=== PATIENT | female | born 1955 | race Caucasian/White ===

== ENCOUNTER 2018-06-02 03:08 | Emergency (ER) | payer BC ==
[2018-06-02] MEDS ORDERED: ONDANSETRON 4 MG/2 ML VIAL ONE (04:42)
[2018-06-02] MEDS ORDERED: LORazepam 2 MG/ML VIAL ONE (04:42)
[2018-06-02] MEDS ORDERED: NA CHLORIDE 0.9% 1,000 ML ONE (04:42)
[2018-06-02] MEDS ORDERED: FAMOTIDINE 20 MG/2 ML VIAL IV ONE (04:42)
[2018-06-02 05:14] LABS: Absolute Lymphocytes (CBC) 1.3 K/uL (0.7-4.9); Absolute Monocytes 0.7 K/uL (0.1-1.3); Absolute Neutrophil 7.3 K/uL (1.8-8.0); Basophils % 0.4 % (0-1.3); MPV 8.4 fL (7.6-11.3)
[2018-06-02 05:27] LABS: Albumin 4.5 g/dL (3.4-5.0); Bilirubin Direct 0.2 mg/dL (0-0.2); Potassium 3.1 mmol/L (3.5-5.1); Protein, Total 8.2 g/dL (6.4-8.2)
[2018-06-02] MEDS ORDERED: POTASSIUM 25 MEQ EFFERV TAB ONE (06:02)
[2018-06-02 06:13] LABS: Urine Bacteria <20 /HPF (<20); Urine RBC <5 /HPF (NONE SEEN)
[2018-06-02 06:14] LABS: Urine Amorphous Sediment 1+ /HPF (NONE SEEN); Urine Culture Reflex Order NOT NEEDED
[2018-06-02 06:15] LABS: Urine Blood 1+ (NEG); Urine Glucose NEGATIVE (NEG); Urine Protein NEGATIVE (NEG); Urine Specific Gravity 1.015 (1.005-1.030)
--- NOTE | 2018-06-02 06:32 | EDPHYS ---
Physician Documentation [facility] Name: Lovely Rai Age: 62 yrs Sex: Female : 1955 Arrival Date: 06/02/2018 Time: 03:13 Bed 15 Private MD: ED Physician Rigoberto Fuentes HPI: 06/02 04:08 This 62 yrs old Female presents to ER via Ambulatory with complaints of wa Nausea/Vomiting, High Blood Pressure. 04:08 The patient presents to the emergency department with vomiting. Onset: The wa symptoms/episode began/occurred 3 day(s) ago. Possible causes: unknown, states run out of her xanax x 3 days. has been on 0.5mg 4 times a day x 5 yrs. denies abd pain or diarrhea. The symptoms are aggravated by nothing. The symptoms are alleviated by nothing. Associated signs and symptoms: Pertinent positives: lightheartedness that began today. . Severity of symptoms: At their worst the symptoms were moderate in the emergency department the symptoms are unchanged. The patient has not experienced similar symptoms in the past. The patient has not recently seen a physician. Historical: - Allergies: 03:30 No Known Allergies; cc3 - Home Meds: 03:30 metoprolol tartrate 50 mg Oral tab 1 tab once daily [Active]; cc3 losartan-hydrochlorothiazide 100-12.5 mg oral tab 1 tab once daily [Active]; sertraline 100 mg oral tab 1 tab once daily [Active]; alprazolam 0.5 mg Oral tab 1 tab 3 times per day [Active]; - PMHx: 03:30 Hypertension; Depression; Anxiety; cc3 - PSHx: 03:30 miniscus bilateral knee surgery; Hysterectomy; Tonsillectomy; cc3 - Immunization history:: Adult Immunizations not up to date. - Social history:: Smoking status: Patient/guardian denies using tobacco, never smoked. - Ebola Screening: : No symptoms or risks identified at this time. - Family history:: not pertinent. - Hospitalizations: : No recent hospitalization is reported. ROS: 04:10 Constitutional: Negative for fever, chills, and weight loss, Eyes: Negative for injury, wa pain, redness, and discharge, ENT: Negative for injury, pain, and discharge, Neck: Negative for injury, pain, and swelling, Cardiovascular: Negative for chest pain, palpitations, and edema, Respiratory: Negative for shortness of breath, cough, wheezing, and pleuritic chest pain, Back: Negative for injury and pain, : Negative for injury, bleeding, discharge, and swelling, MS/Extremity: Negative for injury and deformity, Skin: Negative for injury, rash, and discoloration, Psych: Negative for depression, anxiety, suicide ideation, homicidal ideation, and hallucinations. 04:10 Abdomen/GI: Positive for nausea and vomiting. 04:10 Neuro: Positive for dizziness. 04:10 All other systems are negative. Exam: 04:11 Constitutional: This is a well developed, well nourished patient who is awake, alert, wa and in no acute distress. Head/Face: Normocephalic, atraumatic. Eyes: Pupils equal round and reactive to light, extra-ocular motions intact. Lids and lashes normal. Conjunctiva and sclera are non-icteric and not injected. Cornea within normal limits. Periorbital areas with no swelling, redness, or edema. ENT: Nares patent. No nasal discharge, no septal abnormalities noted. Tympanic membranes are normal and external auditory canals are clear. Oropharynx with no redness, swelling, or masses, exudates, or evidence of obstruction, uvula midline. Mucous membranes moist. Neck: Trachea midline, no thyromegaly or masses palpated, and no cervical lymphadenopathy. Supple, full range of motion without nuchal rigidity, or vertebral point tenderness. No Meningismus. Chest/axilla: Normal chest wall appearance and motion. Nontender with no deformity. No lesions are appreciated. Cardiovascular: Regular rate and rhythm with a normal S1 and S2. No gallops, murmurs, or rubs. Normal PMI, no JVD. No pulse deficits. Respiratory: Lungs have equal breath sounds bilaterally, clear to auscultation and percussion. No rales, rhonchi or wheezes noted. No increased work of breathing, no retractions or nasal flaring. Back: No spinal tenderness. No costovertebral tenderness. Full range of motion. Skin: Warm, dry with normal turgor. Normal color with no rashes, no lesions, and no evidence of cellulitis. MS/ Extremity: Pulses equal, no cyanosis. Neurovascular intact. Full, normal range of motion. Psych: Awake, alert, with orientation to person, place and time. Behavior, mood, and affect are within normal limits. 04:11 Abdomen/GI: Inspection: abdomen appears normal, Bowel sounds: normal, Palpation: abdomen is soft and non-tender, in all quadrants. 04:11 Neuro: Orientation: is normal, Mentation: is normal, Cranial nerves: grossly normal, Cerebellar function: is grossly normal, Motor: is normal. Vital Signs: 03:30 BP 172 / 84; Pulse 69; Resp 18 S; Temp 98.3(O); Pulse Ox 98% on R/A; Weight 79.83 kg cc3 (R); Height 5 ft. 6 in. (167.64 cm) (R); 04:30 BP 167 / 75; Pulse 70; Resp 19 S; Pulse Ox 98% on R/A; cc3 05:44 BP 148 / 67; Pulse 63; Resp 19 S; Pulse Ox 97% on R/A; cc3 06:17 BP 139 / 68; Pulse 63; Resp 16 S; Pulse Ox 100% on R/A; cc3 03:30 Body Mass Index 28.41 (79.83 kg, 167.64 cm) cc3 MDM: 03:21 Patient medically screened. hi 04:12 Differential diagnosis: gastritis, viral syndrome? r/o UTI. may be related to benzo wa withdrawal. 06:28 Data reviewed: vital signs, nurses notes. Test interpretation: by ED physician or hi midlevel provider: hyponatremia. hypokalemia.. 06:29 Response to treatment: the patient's symptoms have markedly improved after treatment, april states feels much better. states she's always had low Na and K in the past. . 06:42 ED course: repeat chem after fluids Na 127. K 3.3. hi 06:44 Special discussion: states has h/o low NA and K. has always been low whenever she gets hi checked. will replenish and give close f/u. 06/02 04:05 Order name: Basic Metabolic Panel 06/02 04:05 Order name: CBC with Diff 06/02 04:05 Order name: Hepatic Function 06/02 04:05 Order name: Lipase 06/02 04:05 Order name: Flu; Complete Time: 05:37 06/02 04:05 Order name: Urine Microscopic Only; Complete Time: 06:25 06/02 04:05 Order name: Basic Metabolic Panel; Complete Time: 05:37 EDMS 06/02 04:05 Order name: CBC with Automated Diff; Complete Time: 05:38 EDMS 06/02 04:05 Order name: Liver (Hepatic) Function; Complete Time: 05:38 EDMS 06/02 04:05 Order name: Lipase; Complete Time: 05:37 EDMS 06/02 05:39 Order name: Urine Dipstick--Ancillary (enter results); Complete Time: 06:25 [facility] 06/02 05:39 Order name: BMP; Complete Time: 06:41 hi 06/02 04:05 Order name: IV Saline Lock; Complete Time: 05:09 hi 06/02 04:05 Order name: Labs collected and sent; Complete Time: 05:09 hi 06/02 04:05 Order name: Urine Dipstick-Ancillary (obtain specimen); Complete Time: 05:57 hi 06/02 04:07 Order name: Cardiac monitoring; Complete Time: 05:07 hi Administered Medications: 04:40 Drug: NS 0.9% 1000 ml Route: IV; Rate: 1 bolus; Site: right antecubital; cc3 06:00 Follow up: Response: No adverse reaction; IV Status: Completed infusion; IV Intake: cc3 1000ml 04:45 Drug: Zofran 4 mg Route: IVP; Site: right antecubital; cc3 05:43 Follow up: Response: No adverse reaction; Nausea is decreased; Vomiting decreased cc3 04:48 Drug: Pepcid 20 mg Route: IVP; Site: right antecubital; cc3 05:43 Follow up: Response: No adverse reaction; Pain is decreased cc3 04:50 Drug: Ativan 0.5 mg Route: IVP; Site: right antecubital; cc3 05:42 Follow up: Response: No adverse reaction; Marked relief of symptoms; Anxiety decreased cc3 05:55 Drug: Potassium Effervescent Tablet 50 mEq Route: PO; cc3 05:57 Follow up: Response: No adverse reaction cc3 Disposition: 06/02/18 06:31 Discharged to Home. Impression: Acute Vomiting, hyponatremia, hypokalemia. - Condition is Stable. - Prescriptions for Xanax 0.5 mg Oral Tablet - take 1 tablet by ORAL route every 8 hours As needed; 20 tablet. Zofran 4 mg Oral Tablet - take 1 tablet by ORAL route every 12 hours As needed; 21 tablet. Potassium Chloride 20 meq Oral Packet - take 1 packet by ORAL route once daily 1 packet in 6 (six) ounces of water or juice; Take after meal; 30 packet. - Medication Reconciliation Form, Thank You Letter, Antibiotic Education, Prescription Opioid Use form. - Follow up: Private Physician; When: 2 - 3 days; Reason: Recheck today's complaints. - Problem is new. - Symptoms have improved. - Notes: do not stop your xanax cold-turkey. follow up with your doctor for refills prior to running out. Signatures: Dispatcher [employer] EDMS Rigoberto Fuentes MD MD wa Cordel, Charlene cc3 Corrections: (The following items were deleted from the chart) 06:53 06:31 06/02/2018 06:31 Discharged to Home. Impression: Acute Vomiting; hyponatremia; cc3 hypokalemia. Condition is Stable. Forms are Medication Reconciliation Form, Thank You Letter, Antibiotic Education, Prescription Opioid Use. Follow up: Private Physician; When: 2 - 3 days; Reason: Recheck today's complaints. Problem is new. Symptoms have improved. april
--- NOTE | 2018-06-02 06:32 | ER ---
Nurse's Notes [facility] Name: Lovely Rai Age: 62 yrs Sex: Female : 1955 Arrival Date: 06/02/2018 Time: 03:13 Bed 15 Private MD: Diagnosis: Acute Vomiting;hyponatremia;hypokalemia Presentation: 06/02 03:30 Presenting complaint: Patient states: Dizziness, nausea, vomiting, and high blood cc3 pressure reading since Tuesday night. Transition of care: patient was not received from another setting of care. Onset of symptoms was June 01, 2018. Risk Assessment: Do you want to hurt yourself or someone else? Patient reports no desire to harm self or others. Initial Sepsis Screen: Does the patient meet any 2 criteria? No. Patient's initial sepsis screen is negative. Does the patient have a suspected source of infection? No. Patient's initial sepsis screen is negative. Care prior to arrival: Medication(s) given: zofran taken at home at 0000H. 03:30 Method Of Arrival: Ambulatory cc3 03:30 Acuity: NEHEMIAS 3 cc3 Triage Assessment: 03:30 General: Appears Behavior is calm, cooperative, appropriate for age. Pain: Denies pain. cc3 EENT: No signs and/or symptoms were reported regarding the EENT system. Neuro: Level of Consciousness is awake, alert, obeys commands, Oriented to person, place, time, situation, Appropriate for age. Cardiovascular: Patient's skin is warm and dry. Respiratory: Airway is patent Respiratory effort is even, unlabored, Respiratory pattern is regular, symmetrical. GI: Reports nausea, vomiting, since last night. : No signs and/or symptoms were reported regarding the genitourinary system. Derm: No signs and/or symptoms reported regarding the dermatologic system. Musculoskeletal: Circulation, motion, and sensation intact. Range of motion:. Historical: - Allergies: 03:30 No Known Allergies; cc3 - Home Meds: 03:30 metoprolol tartrate 50 mg Oral tab 1 tab once daily [Active]; cc3 losartan-hydrochlorothiazide 100-12.5 mg oral tab 1 tab once daily [Active]; sertraline 100 mg oral tab 1 tab once daily [Active]; alprazolam 0.5 mg Oral tab 1 tab 3 times per day [Active]; - PMHx: 03:30 Hypertension; Depression; Anxiety; cc3 - PSHx: 03:30 miniscus bilateral knee surgery; Hysterectomy; Tonsillectomy; cc3 - Immunization history:: Adult Immunizations not up to date. - Social history:: Smoking status: Patient/guardian denies using tobacco, never smoked. - Ebola Screening: : No symptoms or risks identified at this time. - Family history:: not pertinent. - Hospitalizations: : No recent hospitalization is reported. Screenin:30 Abuse screen: Denies threats or abuse. Denies injuries from another. Nutritional cc3 screening: No deficits noted. Tuberculosis screening: No symptoms or risk factors identified. Fall Risk Ambulatory Aid- None/Bed Rest/Nurse Assist (0 pts). Gait- Normal/Bed Rest/Wheelchair (0 pts) Mental Status- Oriented to own ability (0 pts). Assessment: 03:30 General: see triage assessment. cc3 04:25 Reassessment: Patient appears in no apparent distress at this time. Patient and/or cc3 family updated on plan of care and expected duration. Pain level reassessed. Patient is alert, oriented x 3, equal unlabored respirations, skin warm/dry/pink. 05:40 Reassessment: Patient appears in no apparent distress at this time. Patient and/or cc3 family updated on plan of care and expected duration. Pain level reassessed. Patient is alert, oriented x 3, equal unlabored respirations, skin warm/dry/pink. 06:16 Reassessment: Patient appears in no apparent distress at this time. Patient and/or cc3 family updated on plan of care and expected duration. Pain level reassessed. Patient is alert, oriented x 3, equal unlabored respirations, skin warm/dry/pink. Repeat BMP taken and sent to laboratory as ordered. 06:50 Reassessment: Patient appears in no apparent distress at this time. Patient and/or cc3 family updated on plan of care and expected duration. Pain level reassessed. Patient is alert, oriented x 3, equal unlabored respirations, skin warm/dry/pink. Dr. Fuentes discharged the patient home with prescription given. IV cannula removed and patient left ER vitally stable and ambulatory with her son. Vital Signs: 03:30 BP 172 / 84; Pulse 69; Resp 18 S; Temp 98.3(O); Pulse Ox 98% on R/A; Weight 79.83 kg cc3 (R); Height 5 ft. 6 in. (167.64 cm) (R); 04:30 BP 167 / 75; Pulse 70; Resp 19 S; Pulse Ox 98% on R/A; cc3 05:44 BP 148 / 67; Pulse 63; Resp 19 S; Pulse Ox 97% on R/A; cc3 06:17 BP 139 / 68; Pulse 63; Resp 16 S; Pulse Ox 100% on R/A; cc3 03:30 Body Mass Index 28.41 (79.83 kg, 167.64 cm) cc3 ED Course: 03:13 Patient arrived in ED. es 03:20 Rigoberto Fuentes MD is Attending Physician. wa 03:30 Arm band placed on right wrist. Patient notified of wait time. cc3 03:30 Patient has correct armband on for positive identification. Bed in low position. Call cc3 light in reach. Side rails up X 1. evaluator transfer students on. Pulse ox on. NIBP on. 03:36 Gladis Britt is Primary Nurse. cc3 03:40 Triage completed. cc3 04:40 Inserted saline lock: 20 gauge in right antecubital area, using aseptic technique. cc3 Blood collected. 06:50 No provider procedures requiring assistance completed. IV discontinued, intact, cc3 bleeding controlled, No redness/swelling at site. Pressure dressing applied. Administered Medications: 04:40 Drug: NS 0.9% 1000 ml Route: IV; Rate: 1 bolus; Site: right antecubital; cc3 06:00 Follow up: Response: No adverse reaction; IV Status: Completed infusion; IV Intake: cc3 1000ml 04:45 Drug: Zofran 4 mg Route: IVP; Site: right antecubital; cc3 05:43 Follow up: Response: No adverse reaction; Nausea is decreased; Vomiting decreased cc3 04:48 Drug: Pepcid 20 mg Route: IVP; Site: right antecubital; cc3 05:43 Follow up: Response: No adverse reaction; Pain is decreased cc3 04:50 Drug: Ativan 0.5 mg Route: IVP; Site: right antecubital; cc3 05:42 Follow up: Response: No adverse reaction; Marked relief of symptoms; Anxiety decreased cc3 05:55 Drug: Potassium Effervescent Tablet 50 mEq Route: PO; cc3 05:57 Follow up: Response: No adverse reaction cc3 Intake: 06:00 IV: 1000ml; Total: 1000ml. cc3 Outcome: 06:31 Discharge ordered by . april 06:50 Discharged to home ambulatory, with family. cc3 06:50 Condition: stable 06:50 Discharge instructions given to patient, family, Instructed on discharge instructions, follow up and referral plans. medication usage, Demonstrated understanding of instructions, follow-up care, medications, Prescriptions given X 3. 06:53 Patient left the ED. cc3 Signatures: Katerina Germain William, MD MD wa Cordel, Charlene cc3 Corrections: (The following items were deleted from the chart) 03:59 03:30 Presenting complaint: Patient states: Dizziness, nausea, vomiting, and high blood cc3 pressure reading since last night cc3
[2018-06-02 06:39] LABS: Potassium 3.3 mmol/L (3.5-5.1)
--- NOTE | 2018-06-02 22:30 | EKG ---
Test Date: 2018-06-02 Test Time: 05:01:24 Residential Door Installer: SUBHASH MEASUREMENT RESULTS: Intervals: Rate: 62 OR: 142 QRSD: 146 QT: 464 QTc: 470 Shipman: P: 55 OR: 142 QRS: -12 T: 9 INTERPRETIVE STATEMENTS: Normal sinus rhythm Right bundle branch block Moderate voltage criteria for LVH, may be normal variant Abnormal ECG Compared to ECG 04/27/2000 12:09:00 Left ventricular hypertrophy now present Electronically Signed On 06-02-18 22:28:01 [employer] by Trev Fall
== END 2018-06-02 06:53 | disposition home or self-care (01) ==
LOC: ER 03:08
DX: E87.1 Hypo-osmolality and hyponatremia (principal); E87.6 Hypokalemia; I10 Essential (primary) hypertension; F32.9 Major depressive disorder, single episode, unspecified; F41.9 Anxiety disorder, unspecified
CPT/HCPCS: 36415; 80048; 80076; 81003; 81015; 83690; 85025; 87804; 93005; 96361; 96374; 96375; 99284; J2405; J7030